=== PATIENT | female | born 1990 | race African-American/Black ===

== ENCOUNTER 2016-06-22 13:25 | Emergency (ER) | payer OTHER ==
--- NOTE | ~2016-06-22 | CR63 ---
[facility] A Service of [facility] RADIOLOGY TEXT RESULTS PATIENT: TAYA THORNTON LOCATION: CFTX : [birth year] UNIT #: [id number] AGE: [address]: Alyse Ng APRN SEX: F ORDER DR: [id number] [facility] [address] [place], [place] [address] [id number] E MR#: [id number] Acc #: [id number] NAME: TAYA THORNTON : 1990 SEX: F STUDY DATE/TIME: 06/22/2016 13:42 UNIT: CFOK ROOM: STUDY DESCRIPTION: CR Chest 2 View Attending Physician: Alyse Ng A.P.R.N. Ordering Physician: Ed Franc Barron M.D. Primary Care Physician: [facility] MEDICAL IMAGING REPORT This report is preliminary unless electronic signature is present EXAM PA and lateral chest. INDICATION Cough, sore throat for 2 days. COMPARISON 07/10/2011 FINDINGS The lungs are well expanded. There is no acute infiltrate. The heart size is normal. The visualized osseous structures are unremarkable. IMPRESSION Negative chest. Dictated by... Mark Spain M.D. THIS IS AN ELECTRONICALLY VERIFIED REPORT Mark Spain M.D. at 06/22/2016 4:57 PM CAMRON/jan TD: 06/22/2016 14:44 JOB #: [id number] MEDICAL IMAGING REPORT Page 1 of 1 COPY
[~2016-06-22 13:25] MED LIST: ADVIL200 M1 PO; AMOXICILLIN500 M1 PO; ANAPROX DS550 M1 PO; BACTRIM DS TABL1 TA1 PO; BACTRIM DS TABL1 TA2 PO; CIPRO PO; CLEOCIN PO; DEPO-PROVE150 MG/1 M IM; ERYC250 MG PO; FLEXERIL10 M1 PO; FLEXERIL10 MG PO; IBUPROFEN PO; IBUPROFEN800 MG; IBUPROFEN800 MG PO; KETOPROFEN PO; LORTAB 2.5/5001 TAB PO; NAPROSYN500 MG PO; NORCO 5/325 TAB1 TAB PO; ORUDIS75 M1 PO; PEN-VEE K PO; PHENERGAN PO; PHENERGAN25 M1 PO; ROBAXIN 750750 MG DOB; ROBITUSSIN A-C-S1 ML PO; ROBITUSSIN AC PO; VICODIN 5/1 TAB 5/50; VICODIN 5/1 TAB 5/50 PO; VISTARIL PO; VOLTAREN75 MG PO; ZITHROMAX PO; ZITHROMAX1 G/PKT PO
[2016-06-22 13:31] LABS: URINE SOURCE CLEAN CATCH
[2016-06-22 13:38] LABS: URINE APPEARANCE CLEAR; URINE BILIRUBIN NEG (NEG); URINE BLOOD NEG (NEG); URINE COLOR YELLOW; URINE GLUCOSE NEG (NEG); URINE KETONE NEG (NEG); URINE LEUKOCYTE ESTERASE 1+ (NEG); URINE NITRATE NEG (NEG); URINE PROTEIN NEG (NEG); URINE SPECIFIC GRAVITY 1.018 (1.003-1.035)
[2016-06-22 13:40] LABS: CULTURE INDICATED? YES; URINE BACTERIA AUWI 2+ (NEGATIVE); URINE SQUAMOUS EPITHELIAL CELL FEW /[HPF]
== END 2016-06-22 15:12 | disposition home or self-care (01) ==
LOC: CFTX 13:25
PROVIDERS: Nurse Practitioner
DX: J06.9 Acute upper respiratory infection, unspecified (principal); F32.9 Major depressive disorder, single episode, unspecified
CPT/HCPCS: 71020; 81003; 84703; 87086; 87651; 96360; 99284

== ENCOUNTER 2016-07-30 17:13 | Emergency (ER) | payer OTHER ==
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
== END 2016-07-30 22:23 | disposition home or self-care (01) ==
LOC: CED 17:13
DX: S00.93XA Contusion of unspecified part of head, initial encounter (principal); S20.222A Contusion of left back wall of thorax, initial encounter; S20.221A Contusion of right back wall of thorax, initial encounter; V49.00XA Driver injured in collision with unspecified motor vehicles in nontraffic accident, initial encounter
CPT/HCPCS: 70450; 72072; 99284